=== PATIENT | female | born 1990 | race Caucasian/White ===

== ENCOUNTER → 2018-03-29 | Outpatient (REF) ==
[~2018-03-29] MED LIST: CLO5 PO
[2018-03-29 09:23] LABS: LDL CHOLESTEROL 151 mg/dl
== END ==
DX: Z02.9 Encounter for administrative examinations, unspecified (principal)

== ENCOUNTER 2018-08-07 14:42 | Emergency (ER) | payer BC, OTHER ==
[~2018-08-07 14:42] MED LIST changes: +BUPR-126 PO; +SERT-181 PO
[2018-08-07] MEDS ORDERED: CIPROFLOXACIN 500 MG TAB PO ONE (14:50)
--- NOTE | 2018-08-07 15:02 | ER Report ---
History and Physical Time Seen By MD: 15:00 Hx. of Stated Complaint: WAS IN CONTACT WITH PATIENT POSITIVE FOR BACERTIAL MENINGITIS. PROFLACTIC ANTIBIOTICS INDICATED HPI/ROS CHIEF COMPLAINT: Needs prescription antibiotic due to exposure HISTORY OF PRESENT ILLNESS: Patient exposed to positive bacterial meningitis needed Cipro Remainder of the 14 system rev: Yes Allergies: Coded Allergies: No Known Drug Allergies (Verified , 07/12/18) verified by pt paperwork 07/12/18. Home Meds Reported Medications Sertraline Hcl (SERTRALINE HCL) 100 Mg Tablet, 1.5 TAB PO QDAY, TAB 07/12/18 Bupropion Hcl (WELLBUTRIN SR) 150 Mg Tablet.er, 1 TAB PO QDAY, TAB 07/12/18 Reviewed Nurses Notes: Yes Old Medical Records Reviewed: Yes Constitutional Vital Sign - Last 24 Hours 08/07/18 14:44 Temp 98.5 Physical Exam General appearance: Alert no distress. Respiratory: Chest is non tender, lungs are clear to auscultation. Cardiac: Regular rate and rhythm [ ] [ ] DIFFERENTIAL DIAGNOSIS: After history and physical exam differential diagnosis was considered for exposure Medical Decision Making ED Course/Re-evaluation ED Course Patient given 500 Cipro prophylaxis Decision to Disposition Date: Aug 07, 2018 Decision to Disposition Time: 15:01 Depart Departure Latest Vital Signs Vital Signs Date Time Temp Pulse Resp B/P (MAP) Pulse Ox O2 Delivery O2 Flow Rate FiO2 08/07/18 14:44 98.5 Impression: Primary Impression: Medication administered Condition: Condition Unchanged Disposition: HOME OR SELF-CARE Departure Forms: Medications Reconciliation, Patient Portal Information, ER Transition Record Patient Instructions: Bacterial Meningitis (DC) AINSLEY DARLING MD Aug 07, 2018 15:02
[2018-08-09] MEDS ORDERED: LISD10CA (13:14)
== END 2018-08-07 14:55 | disposition home or self-care (01) ==
LOC: ER 14:51
DX: Z20.811 Contact with and (suspected) exposure to meningococcus (principal)
CPT/HCPCS: 99283

== ENCOUNTER 2018-09-02 02:48 | Day surgery (SDC) | payer OTHER ==
[~2018-09-02] VITALS: Ht 167.6 cm; Wt 71.7 kg
[~2018-09-02 02:48] MED LIST changes: +LEVO1TAB68 PO; +LISD10CA
[2018-09-02] MEDS: NORMOSOL R SOLN(*) 1000 ML BAG 1,000 ML IV PRN ×2 (09:31→12:58)
[2018-09-02 09:35] VITALS: BP 141/108
[2018-09-02] MEDS ORDERED: FAMOTIDINE(*) 20MG/50ML PREMIX 50 ML IVPB ONE (09:40)
[2018-09-02 09:52] VITALS: BP 145/102
[2018-09-02] MEDS ORDERED: DEXAMETHASONE SOD PHOS 10MG/ML ONE (10:01)
[2018-09-02] MEDS ORDERED: ONDANSETRON 4 MG/2 ML VIAL ONE (10:01)
[2018-09-02] MEDS ORDERED: PROPOFOL EMUL(*) 10MG/ML 20 ML 40 ML ONE (10:01)
[2018-09-02] MEDS: MIDAZOLAM 2 MG/2 ML VIAL IVP PRN ×2 (10:03→10:15)
[2018-09-02] MEDS ORDERED: BACITRACIN OINT 15 GM TUBE TP ONE (10:04)
[2018-09-02] MEDS ORDERED: OXYMETAZOLINE SPRAY 15 ML BTL ONE (10:05)
[2018-09-02] MEDS ORDERED: NS(*) 0.9% 250 ML BAG 250 ML ONE (10:05)
[2018-09-02] MEDS ORDERED: LIDO/EPI 1% MDV 1:100,000 20ML INFIL ONE (10:05)
[2018-09-02] MEDS ORDERED: fentaNYL CITR 100 MCG/2 ML AMP ONE ×2 (10:15→11:15)
[2018-09-02] MEDS ORDERED: ceFAZolin(*) 2GM/D5W 50ML 50 ML IVPB ONE (11:00)
[2018-09-02] MEDS ORDERED: LIDOCAINE/SOD BICARB 8.4% SYR ID ONE (11:00)
[2018-09-02] MEDS ORDERED: FAMOTIDINE 20 MG TAB PO ONE (11:00)
[2018-09-02] MEDS ORDERED: METOPROLOL TART 5 MG/5 ML VIAL ONE (11:14)
[2018-09-02] MEDS ORDERED: HYDR-653 PO (11:21)
[2018-09-02] MEDS ORDERED: LABETALOL HCL 25 MG/5 ML SYRINGE ONE (11:26)
[2018-09-02] MEDS ORDERED: CEFU500T10 PO (11:39)
--- NOTE | 2018-09-02 11:41 | OPERATIVE REPORT 1 ---
EVENT DATE: September 02, 2018 SURGEON: Alfredo Bailey MD ANESTHESIOLOGIST: Chuy Mera MD ANESTHESIA: LMA. PROCEDURES PERFORMED 1. Septoplasty. 2. Submucous resection of bilateral inferior turbinates. PREOPERATIVE DIAGNOSES 1. Nasal septal deviation. 2. Bilateral inferior turbinate hypertrophy. POSTOPERATIVE DIAGNOSES 1. Nasal septal deviation. 2. Bilateral inferior turbinate hypertrophy. INDICATIONS Please refer to preoperative note. DESCRIPTION OF PROCEDURE The patient was positively identified in the preoperative area. She was accompanied there by mother mother. Risks were again explained including, but not limited to, bleeding, infection, nasoseptal perforation and those associated with anesthesia. She acknowledged understanding those risks. She was then brought back to the operative suite, laid supine on the operative table and anesthesia was administered. Once asleep, the patient was positioned and then prepped and draped in usual sterile fashion. I initially decongested the nose by injecting approximately 10 cc of 1% lidocaine with epinephrine to the bilateral anterior nasoseptal mucosa and along the face of the bilateral inferior turbinates. Both nasal cavities were subsequently packed with cottonoids containing Afrin solution. These were subsequently removed and nasal endoscopy was performed. This was notable for right inferior septal spur and a severe left posterior septal deviation to the left. A Marshal incision was made in the left anterior nasoseptal mucosa. A subperichondrial flap was elevated. An incision was then made into the anterior nasoseptal cartilage approximately 5 mm posterior to the original [place] incision. A contralateral flap was elevated. The deviated portion of septonasal cartilage and bone was then removed. The Marshal incision was reapproximated with interrupted Chromic suture. I then addressed the inferior turbinates. A stab incision was made at the face of the left inferior turbinate. A caudal elevator was utilized to elevate the mucosa off the underlying bone. A submucous resection was performed with the turbinate blade of the microdebrider. The stab incision was cauterized with suction Bovie electrocautery. The contralateral inferior turbinate was addressed in a similar fashion. Bilateral nasoseptal splints were placed and secured to the columella-septal suture. The patient was then turned to Anesthesia for emergence. ESTIMATED BLOOD LOSS 25 mL. COMPLICATIONS No complications. [facility]
[2018-09-02] MEDS ORDERED: hydrALAZINE HCL 20 MG/ML VIAL ONE (11:47)
[2018-09-02 12:10] VITALS: BP 123/77
[2018-09-02 12:27] VITALS: BP 134/95
[2018-09-02 12:30] VITALS: BP 133/85
[2018-09-02] MEDS ORDERED: APAP/HYDROCODONE 325/5 TAB PO ONE ×2 (13:30→13:31)
[2018-09-10] MEDS ORDERED: [UNRECOGNIZED DRUG - CODE] MC (13:57)
[2018-09-10] MEDS ORDERED: BUPR-472 PO (15:15)
[2018-09-10] MEDS ORDERED: VALA100062 PO (15:15)
[2018-09-10] MEDS ORDERED: SERT-181 PO (15:15)
== END 2018-09-02 12:10 | disposition home or self-care (01) ==
LOC: OR 02:48
PROVIDERS: ATTEND Otolaryngology
DX: J34.2 Deviated nasal septum (principal); J34.3 Hypertrophy of nasal turbinates
CPT/HCPCS: 30140; 30520; 81025; C1763; J0360; J1100; J2250; J2405; J2704; J3010; J7050; J0690

== ENCOUNTER 2018-09-04 12:03 | Emergency (ER) | payer OTHER ==
[~2018-09-04 12:03] MED LIST changes: +CEFU500T10 PO; +HYDR-653 PO
[2018-09-04] MEDS ORDERED: cloNIDine HCL 0.1 MG TAB PO ONE (12:05)
--- NOTE | 2018-09-04 12:18 | ER Report ---
History and Physical Time Seen By MD: 12:14 Hx. of Stated Complaint: Patient s/p nasal septum surgery on Sunday. Continues to have tachycardia and hypertension HPI/ROS CHIEF COMPLAINT: Palpitations tachycardia hypertension HISTORY OF PRESENT ILLNESS: 27-year-old female comes emergency Department today 2 days postop from a septal surgery through ENT after surgical procedure was still under sedation was markedly hypertensive requiring 3 separate hypertensive anti-agent to bring her blood pressure down she has a history of borderline hypertension the systolics and diastolics elevation diastolic usually in the 70-90 range however today comes in with a diastolic of 117 patient also is tachycardic with a rate of 1 5140 and 125. Patient states that she has no associated chest pain which is a control pill she does take medication for anxiety and depression. Patient denies any drug or alcohol use patient has no history of thyroid issues relatively emergency department for evaluation she is markedly hypertension with a diastolic of 117 I's tachycardic with a rate of 150 REVIEW OF SYSTEMS: Respiratory: No cough, no dyspnea. Cardiovascular: Palpitations no chest pain Gastrointestinal: No vomiting, no abdominal pain. Musculoskeletal: No back pain. Remainder of the 14 system rev: Yes Allergies: Coded Allergies: escitalopram (Verified Adverse Reaction, Mild, FATIGUE, 09/04/18) Home Meds Reported Medications Cefuroxime Axetil (CEFUROXIME) 500 Mg Tablet, 500 MG PO BID for 7 Days, #14 TAB 09/02/18 Hydrocodone Bit/Acetaminophen (NORCO 5-325 TABLET) 1 Each Tablet, 1-2 EACH PO Q6H PRN for PAIN, #30 TAB 09/02/18 Levonorgestrel-Ethin Estradiol (Vienva-28 Tablet) 0.1 Mg-20 Mcg Tablet, 1 TAB PO DAILY 08/29/18 Sertraline Hcl (SERTRALINE HCL) 100 Mg Tablet, 1.5 TAB PO QDAY, TAB 07/12/18 Bupropion Hcl (WELLBUTRIN SR) 150 Mg Tablet.er, 1 TAB PO QDAY, TAB 07/12/18 Discontinued Reported Medications Lisdexamfetamine Dimesylate (Vyvanse) 10 Mg Capsule 08/09/18 Reviewed Nurses Notes: Yes Old Medical Records Reviewed: Yes Hx Smoking: No Smoking Status: Never Smoker Hx Substance Use Disorder: No Hx Alcohol Use: Yes Constitutional Vital Sign - Last 24 Hours 09/04/18 12:04 Temp 97.6 Pulse 118 Resp 16 B/P (MAP) 135/116 Pulse Ox 93 O2 Delivery Room Air Physical Exam General Appearance: The patient is alert, has no immediate need for airway protection and no current signs of toxicity. [ ] Eyes: Pupils equal and round no injection. Respiratory: Chest is non tender, lungs are clear to auscultation. Cardiac: Accelerated rate of 150 normal rhythm[ ] Gastrointestinal: Abdomen is soft and non tender, no masses, bowel sounds normal. Musculoskeletal: Neck: Neck is supple and non tender. Extremities have full range of motion and are non tender. Skin: No rashes or lesions. [ ] DIFFERENTIAL DIAGNOSIS: After history and physical exam differential diagnosis was considered for pulmonary emboli idiopathic hypertension and tachycardia hyperthyroid Medical Decision Making Data Points Result Diagram: 09/04/18 1212 09/04/18 1212 Laboratory Hematology Test 09/04/18 12:12 09/04/18 12:33 Red Blood Count 5.36 M/uL (4.17-5.56) Mean Corpuscular Volume 82.7 fL (80.0-96.0) Mean Corpuscular Hemoglobin 27.0 pg (26.0-33.0) Mean Corpuscular Hemoglobin Concent 32.7 g/dL (32.0-36.0) Red Cell Distribution Width 14.3 % (11.5-14.5) Mean Platelet Volume 8.2 fL (7.2-11.1) Neutrophils (%) (Auto) 62.9 % (39.4-72.5) Lymphocytes (%) (Auto) 24.5 % (17.6-49.6) Monocytes (%) (Auto) 8.2 % (4.1-12.4) Eosinophils (%) (Auto) 3.9 % (0.4-6.7) Basophils (%) (Auto) 0.5 % (0.3-1.4) Nucleated RBC Relative Count (auto) 0.0 /100WBC Neutrophils # (Auto) 5.7 K/uL (2.0-7.4) Lymphocytes # (Auto) 2.2 K/uL (1.3-3.6) Monocytes # (Auto) 0.7 K/uL (0.3-1.0) Eosinophils # (Auto) 0.4 K/uL (0.0-0.5) Basophils # (Auto) 0.0 K/uL (0.0-0.1) Nucleated RBC Absolute Count (auto) 0.00 K/uL Peripheral Blood Smear No Y/N Sodium Level 138 mmol/L (137-145) Potassium Level 4.4 mmol/L (3.5-5.0) Chloride Level 105 mmol/L (98-107) Carbon Dioxide Level 26 mmol/L (22-31) Blood Urea Nitrogen 12 mg/dl (7-18) Creatinine 0.90 mg/dl (0.52-1.04) Glomerular Filtration Rate Calc > 60.0 Random Glucose 110 mg/dl (75-110) Calcium Level 10.1 mg/dl (8.4-10.2) Total Bilirubin 0.5 mg/dl (0.2-1.3) Aspartate Amino Transf (AST/SGOT) 17 U/L (0-35) Alanine Aminotransferase (ALT/SGPT) 19 U/L (0-56) Alkaline Phosphatase 78 U/L (0-126) Total Protein 8.2 g/dl (6.3-8.2) Albumin 5.1 g/dl (3.5-5.0) Thyroid Stimulating Hormone (TSH) 0.86 uIU/ml (0.46-4.68) Free Thyroxine 1.50 ng/dl (0.78-2.19) Urine HCG, Qualitative Negative (NEGATIVE) Chemistry Test 09/04/18 12:12 09/04/18 12:33 White Blood Count 9.0 k/uL (4.5-11.0) Red Blood Count 5.36 M/uL (4.17-5.56) Hemoglobin 14.5 g/dL (12.0-16.0) Hematocrit 44.3 % (34.0-47.0) Mean Corpuscular Volume 82.7 fL (80.0-96.0) Mean Corpuscular Hemoglobin 27.0 pg (26.0-33.0) Mean Corpuscular Hemoglobin Concent 32.7 g/dL (32.0-36.0) Red Cell Distribution Width 14.3 % (11.5-14.5) Platelet Count 396 K/uL (150-450) Mean Platelet Volume 8.2 fL (7.2-11.1) Neutrophils (%) (Auto) 62.9 % (39.4-72.5) Lymphocytes (%) (Auto) 24.5 % (17.6-49.6) Monocytes (%) (Auto) 8.2 % (4.1-12.4) Eosinophils (%) (Auto) 3.9 % (0.4-6.7) Basophils (%) (Auto) 0.5 % (0.3-1.4) Nucleated RBC Relative Count (auto) 0.0 /100WBC Neutrophils # (Auto) 5.7 K/uL (2.0-7.4) Lymphocytes # (Auto) 2.2 K/uL (1.3-3.6) Monocytes # (Auto) 0.7 K/uL (0.3-1.0) Eosinophils # (Auto) 0.4 K/uL (0.0-0.5) Basophils # (Auto) 0.0 K/uL (0.0-0.1) Nucleated RBC Absolute Count (auto) 0.00 K/uL Peripheral Blood Smear No Y/N Glomerular Filtration Rate Calc > 60.0 Calcium Level 10.1 mg/dl (8.4-10.2) Total Bilirubin 0.5 mg/dl (0.2-1.3) Aspartate Amino Transf (AST/SGOT) 17 U/L (0-35) Alanine Aminotransferase (ALT/SGPT) 19 U/L (0-56) Alkaline Phosphatase 78 U/L (0-126) Total Protein 8.2 g/dl (6.3-8.2) Albumin 5.1 g/dl (3.5-5.0) Thyroid Stimulating Hormone (TSH) 0.86 uIU/ml (0.46-4.68) Free Thyroxine 1.50 ng/dl (0.78-2.19) Urine HCG, Qualitative Negative (NEGATIVE) Urinalysis Test 09/04/18 12:33 Urine HCG, Qualitative Negative (NEGATIVE) ED Course/Re-evaluation ED Course ED course 27-year-old female comes here with tachycardia palpitations and hypertension with diastolic of 118 given 0.2 of clonidine currently at 99 patient had a recent surgical procedure done and on control EKG showed questionable ST 1 every [address] angiogram was performed showed no sign of DVT or correction no sign of blood clot. Patient will be started on a by mouth oral beta jhonny due to the persistent tachycardia and hypertension and follow up with primary care diagnosis idiopathic hypertension Decision to Disposition Date: Sep 04, 2018 Decision to Disposition Time: 14:01 Depart Departure Latest Vital Signs Vital Signs Date Time Temp Pulse Resp B/P (MAP) Pulse Ox O2 Delivery O2 Flow Rate FiO2 09/04/18 12:04 97.6 118 16 135/116 93 Room Air Impression: Primary Impression: Hypertension Condition: Improved Disposition: HOME OR SELF-CARE Referrals: AMERICO BLANDON MD 2 Days New Scripts Labetalol Hcl (LABETALOL HCL) 100 Mg Tablet 100 MG PO DAILY for Blood Pressure for 14 Days, #14 TAB 1 Refill Prov: AINSLEY DARLING MD 09/04/18 Patient Instructions: Hypertension (DC) AINSLEY DARLING MD Sep 04, 2018 12:18
--- NOTE | 2018-09-04 12:28 | EKG ---
FACILITY: [facility] PATIENT NAME: NIKOLE BOYCE : [id number] MR: [id number] V: [id number] EXAM DATE: ORDERING PHYSICIAN: AINSLEY DARLING TECHNOLOGIST: Test Reason : Blood Pressure : / mmHG Vent. Rate : 104 BPM Atrial Rate : 104 BPM P-R Int : 124 ms QRS Dur : 094 ms QT Int : 328 ms P-R-T Axes : 037 019 019 degrees QTc Int : 431 ms Sinus tachycardia Nonspecific T wave abnormality Abnormal ECG No previous ECGs available Confirmed by ELISSA SALGADO ([id number]) on 09/04/2018 1:43:03 PM Referred By: Confirmed By:ELISSA SALGADO
[2018-09-04 12:29] LABS: PLATELET COUNT, AUTOMATED 396 K/uL (150-450)
[2018-09-04] MEDS ORDERED: IOPAMIDOL 76% 100 ML INFUS BTL 100 ML ONE (12:37)
[2018-09-04] MEDS ORDERED: NS(*) 0.9% 50 ML BAG 50 ML ONE (12:56)
--- NOTE | 2018-09-04 13:35 | RADIOLOGY IMAGING REPORT ---
FACILITY: [facility] [place] PATIENT NAME: Cat Benedict : 1990 MR: [id number] V: [id number] EXAM DATE: ORDERING PHYSICIAN: AINSLEY DARLING TECHNOLOGIST: Location: [facility] [place] Patient: Cat Benedict : 1990 Visit/Account:[id number] Date of Sevice: 09/04/2018 CHEST PA LAT History: cp FINDINGS: Comparison studies: None. Tubes and Lines: None. Lungs and pleura: Well aerated. No evidence of focal consolidation or pleural effusions. Mediastinum: normal. Cardiac silhouette: normal . Osseous structures: Unremarkable for age . IMPRESSION: Normal chest Report Dictated By: Jean Pierce MD at 09/04/2018 1:30 PM Report E-Signed By: Jean Pierce MD at 09/04/2018 1:31 PM [id number]:[email or web address]
--- NOTE | 2018-09-04 13:40 | RADIOLOGY IMAGING REPORT ---
FACILITY: [facility] PATIENT NAME: Cat Benedict : 1990 MR: [id number] V: [id number] EXAM DATE: ORDERING PHYSICIAN: AINSLEY DARLING TECHNOLOGIST: Location: [facility] [place] Patient: Cat Benedict : 1990 Visit/Account:[id number] Date of Sevice: 09/04/2018 CT angiogram chest with contrast Indication: Short of breath., Recent surgery Comparison: None available. Technique: Axial CT images are obtained through the chest after administration of 100 mL Isovue 370 I V contrast. Reformatted coronal and sagittal images were reviewed as well as coronal MIP images. One of the following dose optimization techniques was utilized in the performance of this exam: auto mated exposure control; adjustment of the mA and/or kV according to patient size; or use of iterative reconstruction technique. Specific details can be referenced in the facility?s radiology CT exam ope rational policy. FINDINGS: No evidence of filling defect within the pulmonary vasculature to suggest pulmonary embolus. The heart is normal in appearance. The thoracic aorta is normal. No focal infiltrate or consolidation. No evidence of pneumothorax or pleural effusion. The airways are patent. Visualized thoracic spine is unremarkable. The vertebral body heights are well maintained. No acute a lignment abnormality Limited views of the upper abdomen are unremarkable. IMPRESSION: 1. No evidence of pulmonary embolus. 2. No acute cardiothoracic abnormality Report Dictated By: Kamaljit New at 09/04/2018 1:26 PM Report E-Signed By: Kamaljit New at 09/04/2018 1:35 PM WSN:[email or web address]
[2018-09-04 13:45] VITALS: BP 134/99
[2018-09-04] MEDS ORDERED: NS(*) 0.9% 1000 ML BAG 1,000 ML IV ONE (13:45)
[2018-09-04] MEDS ORDERED: LABE100T2 PO (14:04)
== END 2018-09-04 14:21 | disposition home or self-care (01) ==
LOC: ER 12:08
DX: I10 Essential (primary) hypertension (principal); R00.0 Tachycardia, unspecified
CPT/HCPCS: 71046; 71275; 81025; 84439; 84443; 84481; 85025; 93005; 96360; 99284; J7030; J7050; Q9967; 82040; 82247; 82310; 82374; 82435; 82565; 82947; 84075; 84132; 84155; 84295; 84450; 84460; 84520